=== PATIENT | female | born 2000 | race African-American/Black ===

== ENCOUNTER 2024-10-10 04:47 | Inpatient (IN) | payer BC ==
[~2024-10-10] VITALS: Ht 157.5 cm; Wt 59.0 kg
[2024-10-10 04:55] VITALS: O2SAT 99
[2024-10-10] MEDS: METHYLPREDNISOLONE SOD SUCC 125MG/2ML (ACT-O-VIAL) IV ONE (05:37)
[2024-10-10] MEDS: FAMOTIDINE 20MG/2ML VIAL IV ONE (05:37)
[2024-10-10 06:07] LABS: BASOPHILS % 0.2 % (0.0-2.0); EOSINOPHILS % 0.6 % (0.0-5.0); HEMATOCRIT. 38.3 % (36.0-48.0); HEMOGLOBIN. 12.8 g/dL (12.0-16.0); LYMPHOCYTES % 30.3 % (20.0-50.0); MEAN CORPUSCULAR HGB CONC 33.3 g/dL (31.0-37.0); MEAN PLATELET VOLUME 8.1 fl (7.4-10.4); MONOCYTES % 5.1 % (2.0-8.0); NEUTROPHILS % 63.8 % (40.0-76.0); PLATELET 201 x1000/uL (130-400); RED BLOOD CELL COUNT 4.12 mill/uL (4.2-5.4); RED CELL DISTRIBUTION WIDTH 13.2 % (11.6-14.6); WHITE BLOOD COUNT 9.2 x1000/uL (4.5-11.0)
[2024-10-10 06:17] LABS: CHLORIDE 106 mEq/L (98-107); POTASSIUM 3.5 mEq/L (3.5-5.1); SODIUM 140 mEq/L (136-145)
[2024-10-10 06:18] LABS: CARBON DIOXIDE 23 mEq/L (21-32)
[2024-10-10 06:19] LABS: CALCIUM 8.4 mg/dL (8.7-10.4)
[2024-10-10 06:23] LABS: CREATININE 0.7 mg/dL (0.6-1.0); GLUCOSE 97 mg/dL (70-105)
[2024-10-10 06:24] LABS: UREA NITROGEN BLOOD 7 mg/dL (9-23)
[2024-10-10] MEDS: FAMOTIDINE 20MG/2ML VIAL IV SCH (09:00)
[2024-10-10] MEDS ORDERED: ONDANSETRON HCL 4MG/2ML INJ IV PRN (09:00)
[2024-10-10] MEDS: PREDNISONE 20MG TABLET PO SCH (09:18)
[2024-10-10] MEDS: ACETAMINOPHEN 325MG TABLET PO PRN (09:22)
[2024-10-10 10:59] VITALS: BP 88/51; PULSE 72; RESP 18; TEMP 36.6
[2024-10-10 11:00] VITALS: BP 88/51; PULSE 72; RESP 18; TEMP 36.6; O2SAT 98
[2024-10-10] MEDS ORDERED: DIPHENHYDRAMINE 25MG CAPSULE PO PRN (12:45)
[2024-10-10] MEDS ORDERED: EPIN0.3P3 IM (14:22)
[2024-10-10 16:09] VITALS: BP 102/54; PULSE 78; RESP 18; TEMP 36.6; O2SAT 99
== END 2024-10-10 18:10 | disposition home or self-care (01) | DRG 916 ==
LOC: ER 04:47 → 7WST 06:51 → EDBEDREQTM 06:55 → EDBEDREQ 06:55
PROVIDERS: ADMIT Internal Medicine; ATTEND Internal Medicine
DX: T78.2XXA Anaphylactic shock, unspecified, initial encounter (principal); I95.9 Hypotension, unspecified; Z91.010 Allergy to peanuts; Y92.89 Other specified places as the place of occurrence of the external cause
CPT/HCPCS: 36415; 80048; 85025; J2919; J3490; J7512